=== PATIENT | male | born 1995 | race Caucasian/White ===

== ENCOUNTER 2017-02-05 03:07 | Emergency (ER) | payer MEDICAID ==
[2017-02-05 05:55] VITALS: BP 115/80
[2017-02-05] MEDS ORDERED: Ibuprofen TAB* 600 MG PO ONE (05:59)
[2017-02-05] MEDS ORDERED: Acetaminophen TAB* 325 MG PO ONE (05:59)
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
--- NOTE | 2017-02-05 08:14 | RAD ---
HISTORY: Right wrist injury COMPARISONS: None VIEWS: 3, Frontal, lateral, and oblique views of the right wrist FINDINGS: BONE DENSITY: Normal. BONES: There is no displaced fracture. JOINTS: There is no arthropathy. ALIGNMENT: There is no dislocation. SOFT TISSUES: Unremarkable. OTHER FINDINGS: None. IMPRESSION: NO ACUTE OSSEOUS INJURY. IF SYMPTOMS PERSIST, RECOMMEND REPEAT IMAGING.
== END 2017-02-05 05:55 | disposition home or self-care (01) ==
LOC: ED 03:07
DX: S69.91XA Unspecified injury of right wrist, hand and finger(s), initial encounter (principal); V18.0XXA Pedal cycle driver injured in noncollision transport accident in nontraffic accident, initial encounter; Y93.55 Activity, bike riding; Y92.9 Unspecified place or not applicable
CPT/HCPCS: 99282; A9270-GY

== ENCOUNTER 2018-08-29 15:18 | Emergency (ER) | payer BC, MEDICAID ==
--- OUTSIDE RECORDS SUMMARY | 2018-08-29 15:40 | XMS REPORT ---
:1995 Author Organization [facility] Care Team Providers Name Role Phone Uche Yeh Unavailable Unavailable PROBLEMS Unknown Problems ALLERGIES No Information ENCOUNTERS Encounter Location Date Diagnosis [place] [facility] [address] [place] [facility] [place] [address] Jan, [place] [facility] [place] [address] Aug, [place] [facility] [place] [address] Aug, [place] [address] [place] [address] 14 Jul, 2018 [place] [facility] [address] [place] [address], [place] [address] Jul, [address] [place] [address] Jul, [address] [place] [address] November, [place] [address] [place] [address] Oct, [place] [facility] [place] [address] Sep, [place] [facility] [place] [address] Sep, [facility] [address] [place], [place] Aug, [address] [facility] [address], [place] Aug, [address] [place] [facility] [address] [place] [address] 16 Jul, 2017 [place] [facility] [address] [place] [address] 16 Jul, 2017 [place] [facility] [address] [place] [address] Jun, [place] [facility] [address] [place] [address] 29 Feb, 2017 [facility] [address] [place], [place] 15 Aug, 2016 [address] [facility] [address] [place] [address] Aug, [address] [address] May, [address] [address] Dec, [address] [address] November, [address] [address] November, IMMUNIZATIONS No Known Immunizations SOCIAL HISTORY Never Assessed REASON FOR REFERRAL FUNCTIONAL STATUS PLAN OF CARE VITAL SIGNS MEDICATIONS Unknown Medications PROCEDURES Procedure Date Ordered Result Body Site PERIODIC ORAL EXAMINATION Aug 13, 2018 BITEWINGS - FOUR FILMS Aug 13, 2018 RESULTS No Results REASON FOR VISIT Insurance Providers [facility] Health Member Patient Patient Patient Patient Patient Subscriber Subscriber Subscriber Group Insurance Plan Plan Plan Plan ID Relationship Address Phone Name Date of ID Name Date of No Type Insurance Insurance Insurance Coverage to Subscriber Address Phone Name Dates FQHC Slide [phone] FQ Slide self [place] [id number] M Dental [place] 02 [place] [id number] Full Fee Blue [phone] Blue self [place] [id number] [place] [id number] Choice Opt [place] Medical [facility] [address] Excellus [phone] Excellus self [place] [id number] HMO POS [id number] 89 HMO POS [place] [address] [place] [address] Medicaid [phone] Medicaid self [place] [id number] [facility] [address] [place] [address] FLCH Slide [phone] FLCH Slide self [place] [id number] M Family [place] 02 [place] [address] Planning Full Fee Full Fee Blue [phone] Blue self Ste[place] [id number] Choice Opt 9255 Att[address] 83 Choice Opt [place] GG457 [place] [id number] [place] [facility] Dept Hplex Yuri Former[facility] [address] Case [phone] Case self [place] [id number] Management Dan[facility] Sr 02 Management [facility] [address] [facility] Slide [phone] FQ Slide self Stew [id number] Medical [place] [facility] 02 [facility] [place] [id number] Full Fee Medicaid [phone] Medicaid self [place] [id number] [facility] [address] [place] [id number]
--- OUTSIDE RECORDS SUMMARY | 2018-08-29 15:40 | XMS REPORT ---
:1995 Author Organization [facility] Care Team Providers Name Role Phone Uche Yeh Unavailable Unavailable PROBLEMS Unknown Problems ALLERGIES No Information ENCOUNTERS Encounter Location Date Diagnosis [facility] [address] [place] [address] Jul, [address] [address] November, [facility] [address] [place] [address] Oct, [facility] [address] [place] [address] Sep, [address] [address] Sep, [facility] [address] [place], [place] Aug, [address] Aug, [address] [place] [address] [address] Jul, [place] [address] [address] Jul, [place] [facility] [address] [place] [address] Jun, [place] [facility] [address] [place] [address] Feb, [address] Aug, [address] [address] Aug, [place] [facility] [address] [place] [address] May, [place] [facility] [address] [place] [address] Dec, [place] [facility] [address] [place] [address] November, [facility] [address] [place] [address] November, IMMUNIZATIONS No Known Immunizations SOCIAL HISTORY Never Assessed REASON FOR REFERRAL FUNCTIONAL STATUS PLAN OF CARE VITAL SIGNS MEDICATIONS Unknown Medications PROCEDURES No Known procedures RESULTS No Results REASON FOR VISIT No show#2 Insurance Providers [facility] Health Member Patient Patient Patient Patient Patient Subscriber Subscriber Subscriber Group Insurance Plan Plan Plan Plan ID Relationship Address Phone Name Date of ID Name Date of No Type Insurance Insurance Insurance Coverage to Subscriber Address Phone Name Dates Case [phone] Case self [place] [id number] Management [place] 02 [facility] [address] [facility] Excellus [phone] Excellus self Stew [id number] HMO POS [id number] 89 HMO POS [place] 5 [facility] [address] Medicaid [address] [phone] Medicaid self Stew [id number] [facility] [address] [place] [address] FQHC Slide [phone] FQHC Slide self [place] [id number] M Dental [place] 02 [place] [address] Full Fee FQHC Slide [phone] FQHC Slide self Stew [id number] M Medical [place] 02 [place] [id number] Full Fee FL[facility] Slide [phone] FLCH Slide self [place] [id number] M Family [place] 02 M Family Replaced [place] [facility] [place] [address] Planning Full Fee Full Fee
--- OUTSIDE RECORDS SUMMARY | 2018-08-29 15:40 | XMS REPORT ---
:1995 Author Organization [facility] Care Team Providers Name Role Phone Margarita Beckwith Unavailable Unavailable PROBLEMS Unknown Problems ALLERGIES No Known Allergies ENCOUNTERS Encounter Location Date Diagnosis [place] [address] [place] [address] Jan, [address] [place] [address] Aug, [place] [address] [address] [facility] [address] Aug, [place] [address] [place] [address] Jul, [address] [address] Jul, [address] [place] [address] Jul, [address] [place] [address] November, [address] [address] Oct, [place] [address] [address] [facility] [address] Sep, [place] [address] [place] [address] Sep, [facility] [address] [place], [place] Aug, [address] [facility] [address], [place] Aug, [address] [place] [address] [address] [facility] [address] 16 Jul, 2017 [place] [facility] [address] [facility] [address] 16 Jul, 2017 [place] [address] [address] [place] [address] Jun, [place] [facility] [address] [place] [address] Feb, [place] [address] [place], [place] 15 Aug, 2016 [address] [facility] [address] [place] [address] Aug, [facility] [address] [place] [address] May, [address] [address] Dec, [address] [address] November, [address] [address] November, IMMUNIZATIONS No Known Immunizations SOCIAL HISTORY Never Assessed REASON FOR REFERRAL FUNCTIONAL STATUS PLAN OF CARE Activity Details Follow Up 6 Months Reason: VITAL SIGNS MEDICATIONS Unknown Medications PROCEDURES Procedure Date Ordered Result Body Site PROPHYLAXIS - ADULT 13yrs and older Aug 13, 2018 Caries Risk Assess and Doc Medium Risk Aug 13, 2018 RESULTS No Results REASON FOR VISIT cleaning Insurance Providers [facility] Member Patient Patient Patient Patient Patient Subscriber Subscriber Subscriber Group Insurance Plan Plan Plan Plan ID Relationship Address Phone Name Date of ID Name Date of No Type Insurance Insurance Insurance Coverage to Subscriber Address Phone Name Dates FQHC Slide [phone] FQHC Slide self [place] [id number] M Medical [place] 02 [place] [address] Full Fee Excellus [phone] Excellus self Stew [id number] HMO POS [id number] 89 HMO POS [place] 5 [facility] [address] FQHC Slide [phone] FQHC Slide self [place] [id number] M Dental [place] 02 [place] [address] Full Fee Medicaid [phone] Medicaid self Stew [id number] [facility] [address] [place] [address] Case [phone] Case self Stew [id number] Management [place] 02 [facility] [address] [facility] FLCH Slide [phone] FLCH Slide self [place] [id number] M Family [place] 02 [place] [address] Planning Full Fee Full Fee Blue [phone] Blue self Ste[place] [id number] Choice Opt 9255 Attn 83 Choice Opt [place] [place] Claims GG[address] [address] Hplex Yuri Dept Hplex Yuri formerly [facility] [address] Medicaid [address] [phone] Medicaid self Ste[place] [id number] [facility] [address] [place] [address] Blue [phone] Blue self [place] [id number] [place] [phone] 89 Choice Opt [facility] [address]
[2018-08-29 17:01] LABS: Influenza A Molecular POSITIVE (Negative)
[2018-08-29] MEDS ORDERED: NS 0.9% 1000 ML** 1,000 ML IV ONE (17:22)
[2018-08-29] MEDS ORDERED: Acetaminophen TAB* 325 MG PO ONE (17:23)
[2018-08-29] MEDS ORDERED: Ketorolac INJ* 30 MG/ML 1 ML VIAL IV PUSH ONE (17:23)
[2018-08-29 17:37] LABS: ABS Basophils 0 10^3/ul (0-0.2); ABS Eosinophils 0 10^3/ul (0-0.6); ABS Lymphocytes 0.3 10^3/ul (1.0-4.8); ABS Monocytes 0.8 10^3/ul (0-0.8); ABS Nucleated RBC 0 10^3/ul; Eosinophil % 0.6 %; Hematocrit 44 % (42-52); Hemoglobin 15.4 g/dl (14.0-18.0); Lymphocyte % 4.3 %; Mean Corpuscular HGB Conc 35 g/dl (31-36); Mean Corpuscular Hemoglobin 31 pg (27-31); Mean Corpuscular Volume 87 fL (80-94); Mean Platelet Volume 7.7 fL (7.4-10.4); Nucleated Red Blood Cells % 0.1; Platelet Count 291 10^3/ul (150-450); Red Cell Distribution Width 12 % (10.5-15); White Blood Count 7.1 10^3/ul (3.5-10.8)
--- NOTE | 2018-08-29 17:37 | ED ---
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 At triage his temperature was 102.1 and he rated his pain as a 3/10 in severity. He denies any smoking or drug use. He claims that his pain worsened the morning of 08/29/18 and so he came to the ED. - History of Current Complaint Chief Complaint: EDUpperRespComplaint Stated Complaint: GENERAL ILLNESS Time Seen by Provider: 08/29/18 17:21 Hx Obtained From: Patient Onset/Duration: Sudden Onset, Lasting Weeks, Still Present Timing: Constant Initial Severity: Moderate Current Severity: Moderate Pain Intensity: 3 Character: Cough (Nonproductive) Sputum Amount: None Aggravating Factor(s): Nothing Alleviating Factor(s): Nothing Associated Signs and Symptoms: Fever, Chills - Allergy/Home Medications Allergies/Adverse Reactions: Allergies Allergy/AdvReac Type Severity Reaction Status Date / Time No Known Allergies Allergy Verified 08/29/18 15:31 Home Medications: Home Medications Acetaminophen [Acetaminophen Extra Strength] 500 - 1,000 mg PO Q4HR PRN [History Confirmed 08/29/18] PMH/Surg Hx/FS Hx/Imm Hx Endocrine/Hematology History: Denies: Hx Diabetes Cardiovascular History: Denies: Hx Coronary Artery Disease Respiratory History: Reports: Hx Pneumonia Infectious Disease History: No Infectious Disease History: Denies: Traveled Outside the [place] in Last 30 Days - Family History Known Family History: Negative: Cardiac Disease - Social History Alcohol Use: None Substance Use Type: Reports: None Smoking Status (MU): Never Smoked Tobacco Review of Systems Positive: Fever, Chills Positive: Cough Positive: Other - Positive: muscle aches Positive: Headache All Other Systems Reviewed And Are Negative: Yes Physical Exam - Summary Physical Exam Summary: GENERAL: Patient is a well-developed and nourished M who is lying comfortable in the stretcher. Patient is not in any acute respiratory distress. HEAD AND FACE: Normocephalic EYES: PERRLA, EOMI x 2. EARS: Hearing grossly intact. MOUTH: Oropharynx within normal limits. NECK: Supple, trachea is midline, no adenopathy, no JVD, no carotid bruit. CHEST: Symmetric, no tenderness at palpation LUNGS: Clear to auscultation bilaterally. No wheezing or crackles. CVS: Regular rate and rhythm, S1 and S2 present, no murmurs or gallops appreciated. ABDOMEN: Soft, non-tender. Bowel sounds are normal. No abdominal abnormal pulsations. EXTREMITIES: Full ROM in all major joints, no edema, no cyanosis or clubbing. NEURO: Alert and oriented x 3. No acute neurological deficits. Speech is normal and follows commands. SKIN: Dry and warm Triage Information Reviewed: Yes Vital Signs On Initial Exam: Initial Vitals Temp Pulse Resp BP Pulse Ox 102.1 F 104 19 128/85 96 08/29/18 15:29 08/29/18 15:29 08/29/18 15:29 08/29/18 15:29 08/29/18 15:29 Vital Signs Reviewed: Yes Diagnostics - Vital Signs Vital Signs Temp Pulse Resp BP Pulse Ox 08/29/18 15:29 102.1 F 104 19 128/85 96 - Laboratory Lab Results: Lab Results 08/29/18 Range/Units 16:55 Influenza A (Rapid) Positive A (Negative) Result Diagrams: 08/29/18 17:15 08/29/18 17:15 Lab Statement: Any lab studies that have been ordered have been reviewed, and results considered in the medical decision making process. - Radiology CXR Radiology Interpretation Completed By: Radiologist Summary of Radiographic Findings: No radiographic evidence of acute cardiopulmonary disease. ED physician has reviewed this imaging report. Re-Evaluation - Re-Evaluation First Eval Re-Evaluation Time: 18:40 Change: Improved Comment: Patient is ready for discharge. 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 Workup is remarkable. The physical exam was unremarkable. Lab results obtained. Influenza A positive. In the ED course he was given Tylenol PO and Toradol IV. His CXR was negative. I discussed results with patient and he reports feeling better. He is hemodynamically stable and safe for discharge. Strict return precautions given and he will otherwise follow up with his PCP. The patient will be discharged with a prescription for Tamiflu. He is agreeable with this plan. - Diagnoses Provider Diagnoses: Influenza A Discharge - Sign-Out/Discharge Documenting (check all that apply): Patient Departure - DC Patient Received Moderate/Deep Sedation with Procedure: No - Discharge Plan Condition: Stable Disposition: HOME Prescriptions: Ibuprofen TAB* [Motrin TAB* 800 MG] 800 mg PO Q6H #20 tab Oseltamivir CAP* [Tamiflu CAP*] 75 mg PO BID #10 cap Referrals: Kartik Romo [Primary Care Provider] - (1-3 days) Additional Instructions: Follow up with your primary care physician in 1-3 days. RETURN TO THE EMERGENCY DEPARTMENT FOR CHANGING OR WORSENING SYMPTOMS. - Billing Disposition and Condition Condition: STABLE Disposition: Home - Attestation Statements Document Initiated by Elijahibe: Yes Documenting Scribe: Gopal Red Provider For Whom Melba is Documenting (Include Credential): Cassius Brown MD Scribe Attestation: Gopal Anderson scribed for Cassius Brown MD on 08/29/18 at 1848. Scribe Documentation Reviewed: Yes Provider Attestation: The documentation as recorded by the Gopal munguia accurately reflects the service I personally performed and the decisions made by Mathew bear MD Status of Scribe Document: Viewed
[2018-08-29 17:46] LABS: Activated Partial Thrombo Time 30.6 seconds (26.0-36.3); INR 1.06 (0.77-1.02)
[2018-08-29 17:59] LABS: Albumin 4.6 g/dL (3.2-5.2); Albumin/Globulin Ratio 1.5 (1-3); BUN/Creatinine Ratio 7.8 (8-20); C Reactive Protein 9.51 mg/L (<8.01); Calcium 9.4 mg/dL (8.6-10.3); EGFR African American 109.3 (>60); EGFR Non-African American 90.3 (>60); Potassium 3.8 mmol/L (3.5-5.0); Total Bilirubin 0.4 mg/dL (0.2-1.0); Total Protein 7.6 g/dL (6.4-8.9)
[2018-08-29] MEDS ORDERED: Oseltamivir CAP* 75 MG CAP PO ONE (18:29)
[2018-08-29 19:19] VITALS: BP 121/63
== END 2018-08-29 19:18 | disposition home or self-care (01) ==
LOC: ED 15:18
DX: J11.1 Influenza due to unidentified influenza virus with other respiratory manifestations (principal); R51 Headache; R05 Cough; R50.9 Fever, unspecified
CPT/HCPCS: 36415; 71046; 80053; 83605; 85025; 85610; 85730; 86140; 87040; 96361; 96374; 99282; A9270-GY; J1885